=== PATIENT | male | born 1945 | race Caucasian/White ===

== ENCOUNTER → 2016-04-29 | Outpatient (CLI) | payer OTHER ==
[~2016-04-29] MED LIST: IOPAMIDOL (ISOVUE-300) 100 ML BTL IV ONE
[2016-04-29 14:46] LABS: GLOMERULAR FILTRATION RATE > 60
--- NOTE | 2016-04-29 16:25 | CT ---
CT Scan of the Abdomen and Pelvis (With Contrast) at 1522 hours History: 5 abdominal hernias. Abdominal pain. R10.31, R10.32. Aortic dissection. COMPARISON: CT December 2015. Technique: Axial computed tomographic images of the abdomen and pelvis were obtained with the unevent ful intravenous administration of 90 mL Isovue-300 contrast. No oral or rectal contrast which limits the study. Dose reduction techniques were utilized. CT Abdomen Findings: Lung bases: Cardiomegaly with pacemaker noted. No pleural effusion. Ectasia of the visualized distal descending aorta up to 4 cm. Moderate atherosclerotic calcification of the aorta with abdominal aortic chronic dissection beginning at the origin of the celiac artery an d extending into the left common iliac artery origin appearing similar to the previous study. False l umen is on the left where the origin of the right SMA artery from the [place] aorta. Origin of the lef t renal artery from the false lumen. Origin of the inferior mesenteric artery from the false lumen. N o evidence of acute thrombus. Liver: Multiple probable hepatic cysts. Biliary system: Gallbladder is surgically absent. No biliary ductal dilation. Spleen: Normal. Pancreas: Normal. Adrenals: Normal. Kidneys: Nonobstructing nephrolithiasis with at least 2 calculi in the lower pole calyces of the righ t kidney measuring up to 5 and 6 mm. Multiple bilateral renal cysts, with the largest in the lower po le of the left kidney measuring 5.5 cm and lower pole right kidney measuring 3.6 cm.. No bowel obstruction, ascites, or significant retroperitoneal lymphadenopathy. Suggestion of left upper quadrant anterior abdominal wall hernia with extension anterior to the left anterior rib as noted on image 130 of series 3. Periumbilical abdominal wall hernia defect measuring 15 mm with omental fat extending into this regio n. CT pelvis findings: Left anterior mid pelvis abdominal wall hernia with mesenteric fat measuring 3 c m with some mesh noted in this region, image 250 series 3. No pelvic masses or significant adenopathy . Small right inguinal hernia with mesenteric fat identified, image 322 of series 3. Severe degenerative disk disease at L3-L4, L4-L5 and L5-S1 with disk space narrowing and facet arthro radha, resulting in severe central canal stenosis at L3-L4 and L4-L5. Impression: 1. Atherosclerotic abdominal aorta with chronic dissection appearing similar to the previous study. 2. Periumbilical abdominal wall hernia, left upper quadrant anterior abdominal wall hernia, left ante rior mid pelvis hernia, and right inguinal hernia noted.
== END ==
LOC: FIMAGING 13:44
PROVIDERS: ATTEND Surgery
DX: I70.0 Atherosclerosis of aorta (principal); K42.9 Umbilical hernia without obstruction or gangrene; K43.9 Ventral hernia without obstruction or gangrene; K40.90 Unilateral inguinal hernia, without obstruction or gangrene, not specified as recurrent; M51.36 Other intervertebral disc degeneration, lumbar region; M12.88 Other specific arthropathies, not elsewhere classified, other specified site; M48.06 Spinal stenosis, lumbar region
CPT/HCPCS: 74177; Q9967

== ENCOUNTER → 2016-06-21 | Outpatient (CLI) | payer OTHER | LOC: BHFA 14:30 | PROVIDERS: ATTEND Internal Medicine Interventional Cardiology | DX: I50.33 Acute on chronic diastolic (congestive) heart failure (principal); I25.10 Atherosclerotic heart disease of native coronary artery without angina pectoris; Z95.0 Presence of cardiac pacemaker ==

== ENCOUNTER 2016-07-19 05:55 | Inpatient (IN) | payer OTHER ==
[2016-07-19] MEDS ORDERED: ceFAZolin 2 GM/DEXTROSE 100 ML IV ONE (06:00)
[2016-07-19] MEDS ORDERED: LIDOCAINE 1% 5 ML SDV ONE (06:11)
[2016-07-19] MEDS ORDERED: BUPIVACAINE 0.5% 30 ML SDV ONE ×2 (06:48→13:36)
[2016-07-19] MEDS ORDERED: LR 1,000 ML IV ONE (06:58)
[2016-07-19] MEDS ORDERED: fentaNYL 250 MCG/5 ML INJ ONE (12:19)
[2016-07-19] MEDS ORDERED: PROPOFOL 200 MG/20 ML VIAL ONE ×2 (12:19→13:46)
[2016-07-19] MEDS ORDERED: ROCURONIUM 50 MG/5 ML VIAL ONE (12:20)
[2016-07-19] MEDS ORDERED: DEXAMETHASONE 4 MG/ML VIAL ONE (12:22)
[2016-07-19] MEDS ORDERED: LIDO/EPI 1% **Not for Epidural 20 ML MDV ONE (13:36)
[2016-07-19] MEDS ORDERED: LIDOCAINE 1% 30 ML SDV ONE (13:37)
[2016-07-19] MEDS ORDERED: MIDAZOLAM 2 MG/2 ML VIAL ONE (13:46)
[2016-07-19] MEDS ORDERED: ONDANSETRON 4 MG/2 ML VIAL ONE (15:18)
[2016-07-19] MEDS ORDERED: GLYCOPYRROLATE 0.2 MG/1 ML VIAL ONE (15:19)
[2016-07-19] MEDS ORDERED: NEOSTIGMINE METHYLSULFATE 5 MG/5 ML SYR ONE (15:19)
[2016-07-19] MEDS ORDERED: ONDANSETRON 4 MG/2 ML VIAL IVP PRN (16:44)
[2016-07-19] MEDS ORDERED: HYDROmorphONE/DILAUDID 1 MG/ML SYR IVP PRN (16:44)
[2016-07-19] MEDS ORDERED: ACETAMINOPHEN 325 MG TAB PO PRN (16:44)
[2016-07-19] MEDS ORDERED: fentaNYL 100 MCG/2 ML INJ ONE (16:47)
[2016-07-19] MEDS ORDERED: D5W 1/2 NS W/ 20 KCl/L 1,000 ML IV SCH (17:00)
--- NOTE | 2016-07-19 17:31 | POSTOPPROG ---
Post Op Note Date of Operation: 07/19/16 Surgeon: Nash Mena Ase Master Mechanic: HARRIET Price MS Anesthesiologist: [place] Anesthesia: GET(General Endotracheal) Pre-op Diagnosis: recurrent ventral hernia, umbilical hernia, bilateral inguinal hernia Post-op Diagnosis: same Procedure: lap ventral hernia rpr, open umb hernia rpr, lap BIH rpr Findings: previous inguinal hernia repair right Inf/Abcess present in the surg proc area at time of surgery?: No EBL: Minimal Complications: none
[2016-07-19] MEDS: D5W 1/2 NS W/ 20 KCl/L 1,000 ML IV SCH (17:43)
[2016-07-19] MEDS: OXYCODONE/APAP 5/325 TAB PO PRN ×2 (17:44→22:59)
[2016-07-19] MEDS: METOPROLOL TARTRATE 50 MG TAB PO SCH (22:59)
[2016-07-19] MEDS: TAMSULOSIN HCL 0.4 MG CAP PO SCH (23:00)
[2016-07-20] MEDS ORDERED: SPIRONOLACTONE 25 MG TAB PO PRN (06:26)
[2016-07-20] MEDS: D5W 1/2 NS W/ 20 KCl/L 1,000 ML IV SCH (06:35)
[2016-07-20] MEDS: ASPIRIN 325 MG TAB PO SCH ×2 (08:24→20:25)
[2016-07-20] MEDS: PRAVASTATIN SODIUM 40 MG TAB PO SCH (08:24)
[2016-07-20] MEDS: METOPROLOL TARTRATE 50 MG TAB PO SCH ×2 (08:25→20:25)
[2016-07-20] MEDS: DIGOXIN 125 MCG TAB PO SCH (08:25)
[2016-07-20] MEDS: DOCUSATE SODIUM 100 MG CAP PO PRN ×2 (08:29→23:15)
[2016-07-20] MEDS: OXYCODONE/APAP 5/325 TAB PO PRN ×3 (08:29→23:15)
--- NOTE | 2016-07-20 09:17 | SOAPPROG ---
SOAP Progress Note Assessment/Plan: Assessment: POD # 1 s/p lap ventral hernia, Lap BIH and open umbilical Concerned that right inguinal hernia was missed Will order ultrasound Diet as tolerated S: Sitting in chair, appears comfortable but states in pain Plan: 07/20/16 09:15 Objective: Vital Signs Temp Pulse Resp BP Pulse Ox 36.5 C 75 16 116/71 94 07/20/16 07:43 07/20/16 08:25 07/20/16 07:43 07/20/16 07:43 07/20/16 07:43 07/19/16 07/20/16 07/21/16 05:59 05:59 05:59 Intake Total 1350 Output Total 175 Balance 1175 Physical Exam - Physical Exam General Appearance: WD/WN, alert, no apparent distress EENT: PERRL/EOMI, normal ENT inspection Respiratory: chest non-tender, lungs clear Cardiac/Chest: regular rate, rhythm Abdomen: normal bowel sounds, other (dressings dry. Multiple dressings on abdomen. Fullness in right groin but no hernia on exam. No gross ecchymosis) Skin: warm/dry Neuro/Psych: normal mood/affect ICD10 Worksheet Patient Problems: Problems Problem Status Onset Atrial fibrillation Acute Cholecystitis with cholelithiasis Acute Chronic Disease Mgmt/Transitional Care Acute Congestive heart failure Acute Hypertension Acute Right ankle sprain Acute Syncope Acute Aortic dissection, thoracoabdominal Chronic
[2016-07-20] MEDS: FAMOTIDINE 20 MG TAB PO PRN ×3 (14:31→23:15)
[2016-07-20] MEDS: TAMSULOSIN HCL 0.4 MG CAP PO SCH (20:25)
--- NOTE | 2016-07-21 07:50 | SOAPPROG ---
SOAP Progress Note Assessment/Plan: Assessment: POD # 2s/p lap ventral hernia, Lap BIH and open umbilical Small fluid collection right groin Diet as tolerated S: Sitting in chair, appears comfortable but states in pain O: CTAB RRR BS present Soft non tender Incisions cdi Plan: 07/20/16 09:15 07/21/16 07:49 Objective: Vital Signs Temp Pulse Resp BP Pulse Ox 36.8 C 70 14 120/72 94 07/21/16 04:00 07/21/16 04:00 07/21/16 04:00 07/21/16 04:00 07/21/16 04:00 07/20/16 07/21/16 07/22/16 05:59 05:59 05:59 Intake Total 1350 1700 Output Total 175 Balance 1175 1700 ICD10 Worksheet Patient Problems: Problems Problem Status Onset Atrial fibrillation Acute Cholecystitis with cholelithiasis Acute Chronic Disease Mgmt/Transitional Care Acute Congestive heart failure Acute Hypertension Acute Right ankle sprain Acute Syncope Acute Aortic dissection, thoracoabdominal Chronic
[2016-07-21 07:56] VITALS: BP 138/89; RESP 16; TEMP 98.3; O2SAT 93
[2016-07-21] MEDS: ASPIRIN 325 MG TAB PO SCH (08:33)
[2016-07-21] MEDS: PRAVASTATIN SODIUM 40 MG TAB PO SCH (08:34)
[2016-07-21] MEDS: METOPROLOL TARTRATE 50 MG TAB PO SCH (08:34)
[2016-07-21] MEDS: DIGOXIN 125 MCG TAB PO SCH (09:31)
[2016-07-21 09:33] VITALS: PULSE 72
[2016-07-21] MEDS: DOCUSATE SODIUM 100 MG CAP PO PRN (10:57)
[2016-07-21] MEDS: OXYCODONE/APAP 5/325 TAB PO PRN (10:57)
--- NOTE | 2016-07-24 11:27 | GDS ---
[f rep st] DISCHARGE SUMMARY DISCHARGE DIAGNOSES: 1. Ventral hernia. 2. Umbilical hernia. 3. Bilateral inguinal hernias. 4. Right groin seroma. PROCEDURES: 1. Open ventral hernia repair. 2. Umbilical hernia repair. 3. Laparoscopic bilateral inguinal hernia repairs with Dr. Nash Mena. SPECIAL TESTS: Ultrasound of the right groin shows a focal fluid collection measuring 5 x 5 x 2.3 c m. HOSPITAL COURSE: The patient is a 70-year-old male with a past abdominal surgical history notable f or cholecystectomy and abdominal aortic aneurysm repair who presented with 4 separate hernias. He u nderwent repair of his ventral hernia, his umbilical hernia, and both his right and left groin herni as. The procedures were uncomplicated and he tolerated them well. He was admitted for observation. The patient's postoperative course was relatively uneventful. He did complain of some swelling of h is right groin. Ultrasound confirmed a seroma. This did not enlarge during his hospital stay. Ult imately he was discharged to home in stable condition with plans for outpatient followup. DISCHARGE INSTRUCTIONS: Patient was instructed to follow up in clinic. All limitations were discus sed prior to him going home. Please see his medicine reconciliation for accurate discharge medicati ons. /[id number]/MODL
--- NOTE | 2016-08-17 15:54 | GOP ---
[f rep st] OPERATIVE REPORT DATE OF OPERATION: 07/20/2016 SURGEON: Nash Mena MD LEAD MINER: Vinayak Price, medical student. ANESTHESIOLOGIST: Dr. Hugo. PREOPERATIVE DIAGNOSIS: Recurrent ventral hernia, umbilical hernia, bilateral inguinal hernias. POSTOPERATIVE DIAGNOSIS: Recurrent ventral hernia, umbilical hernia, bilateral inguinal hernias. PROCEDURE PERFORMED: 1. Laparoscopic ventral hernia repair. 2. Open umbilical hernia repair. 3. Laparoscopic bilateral inguinal hernia repairs. FINDINGS: DESCRIPTION OF PROCEDURE: Patient was taken to the operating room where he received a satisfactory general endotracheal anesthesia by Dr. Hugo. He was placed in supine position, prepped and draped in usual sterile fashion. A periumbilical incision was made. A Veress needle inserted. Pneumoperi toneum was established. A trocar was introduced. Laparoscope introduced. Good visualization was o btained. Intra-abdominally 2 inguinal hernias were well demonstrated as well as the area in the lef t lower quadrant where marked adhesions were encountered, and a previous patch was then placed there . In addition, in the upper abdomen, at a previous hernia site, a defect was present there containi ng colon and omentum. Three other trocars were placed under direct vision. Attention was 1st turne d to the upper abdominal hernia which was dissected free. Its contents were reduced with care to av oid injury to the colon. The defect was identified. A Covidien, dual-sided patch was placed over t he defect where it was anchored in place with Protac, anchoring it around the periphery of the defec t in a 3-layer ring of santa, widely covering the defect itself. Attention was then turned to the left lower quadrant area. Adhesions were taken down in that area, but the patch appeared to be int act with no evidence of recurrent hernia. This left the 2 remaining inguinal hernias which were pre sent. The pneumoperitoneum was released. A preperitoneal tunnel was then developed. A trocar was introduced. The preperitoneal space was dissected free with a balloon trocar which was replaced wit h CO2 insufflation trocar. Two other trocars were placed in the midline under direct vision. Coope r ligament was exposed bilaterally. The cords were mobilized bilaterally. Peritoneum was dissected off the cord structures. On the right side, he had a moderate indirect sac which was dissected stephanie e and reduced. A Covidien polyester mesh patch was selected for that and sized. A split patch was used and was passed around the cord structures and anchored in place with AbsorbaTack, securing it t o Harry's ligament, to lacunar ligament, anterior abdominal wall and the lateral abdominal wall out side the internal ring. On the left side, a direct defect was identified. Contents were reduced. The peritoneum was dissected off the cord structures, but there was no significant indirect sac, and again, a Covidien polyester mesh patch was placed over the inguinal floor and anchored in a similar manner. Hemostasis was assured. Trocars were removed under direct vision. Pneumopreperitoneum wa s released. Trocar sites were closed with 0 Vicryl for the fascia, 4-0 Monocryl subcuticular stitch for the skin. Attention was then turned to the umbilical hernia defect. It was dissected free fro m surrounding subcutaneous tissue. The sac was opened at the fascial edges. The contents were redu lo, and the fascia was closed in a 2-layer [id number] type closure with 0 Surgilon mattress chi tures. All wounds were infiltrated 0.5% Marcaine. Subcu was closed there with 3-0 Vicryl as well a s 4-0 Monocryl subcuticular stitch for the skin. The wounds were dressed. He tolerated the procedu re well, was taken to recovery room in good condition. There were no complications. /[id number]/MODL
== END 2016-07-21 11:19 | disposition home or self-care (01) | DRG 908 ==
LOC: FSGY 05:55 → INTOOBSV 16:24 → F3N 16:24 → OBSVTOIN 07-20 17:39
PROVIDERS: ADMIT Surgery; ATTEND Surgery
DX: L76.82 Other postprocedural complications of skin and subcutaneous tissue (principal); K40.20 Bilateral inguinal hernia, without obstruction or gangrene, not specified as recurrent; K43.9 Ventral hernia without obstruction or gangrene; K42.9 Umbilical hernia without obstruction or gangrene; I25.10 Atherosclerotic heart disease of native coronary artery without angina pectoris; I50.30 Unspecified diastolic (congestive) heart failure; Z95.0 Presence of cardiac pacemaker
CPT/HCPCS: C1727; C1781; J0690; J1100; J2250; J2405; J2704; J2710; J3010

== ENCOUNTER → 2016-11-13 | Outpatient (CLI) | payer OTHER | LOC: BHFA 14:00 | PROVIDERS: ATTEND Internal Medicine Cardiovascular Disease | DX: I50.9 Heart failure, unspecified (principal) ==